=== PATIENT | male | born 1985 | race Caucasian/White ===

== ENCOUNTER 2016-05-02 20:18 | Emergency (ER) | payer SELFPAY ==
[~2016-05-02] VITALS: Ht 188 cm; Wt 89.0 kg
[~2016-05-02 20:18] MED LIST: Z.0.NO CURRENT MEDS
[2016-05-02 20:20] VITALS: BP 161/77; PULSE 94; RESP 16; TEMP 97.8; O2SAT 98
--- NOTE | 2016-05-02 22:03 | PD ---
HPI Chief Complaint: Pain: Acute or Chronic Time Seen by Provider: 22:00 Travel History International Travel<30 days: No Contact w/Intl Traveler<30days: No Traveled to known affect area: No History of Present Illness HPI Patient comes in complaining of right-sided neck pain radiating down his right upper extremity ongoing for 3 or 4 days. Patient states pain began while he was working out at the gym doing flat bench presses. Patient denies any direct trauma, fevers, drug use, numbness or tingling, weakness, loss change in bowel or bladder, or headaches. Pain is worse with certain movement of his neck. Pain is burning like in nature. Patient states taking a hot shower relieves pain. Patient taking ibuprofen with minimal relief. PFSH Past Medical History Autoimmune Disease: No Blood Disorders: No Cancer: No Cardiovascular Problems: No Chemotherapy: No Endocrine: No Genitourinary: No Headaches: No Immune Disorder: No Musculoskeletal: No Neurologic: No (HAD A CONCUSSION 04-23-06) Psychiatric: No Respiratory: No Migraines: No Seizures: No Past Surgical History AICD: No Arteriovenous Shunt: No Insulin Pump: No Joint Replacement: No Pacemaker: No Social History Alcohol Use: Yes (SOCIALLY) Tobacco Use: No Substance Use: No Allergies-Medications (Allergen,Severity, Reaction): Coded Allergies: No Known Allergies (Verified , 05/02/16) Reported Meds & Prescriptions Reported Meds & Active Scripts Active Prednisone (21) 10 mg tab Dose Pack (Prednisone) 10 Mg Pack 10 Mg PO DIRECTED Flexeril (Cyclobenzaprine HCl) 10 Mg Tab 10 Mg PO Q8HR PRN Reported No Current Meds (Miscellaneous Medication) [facility] [place] Review of Systems Except as stated in HPI: all other systems reviewed are Neg Physical Exam Narrative GENERAL: Well-developed, well nourished, in no acute distress, and non-ill appearing. SKIN: Warm and dry. HEAD: Atraumatic. Normocephalic. EYES: Pupils equal and round. EOMI. No scleral icterus. No injection or drainage. ENT: No nasal bleeding or discharge. Mucous membranes pink and moist. NECK: Trachea midline. No JVD. Supple. No nuclear rigidity. No tenderness or crepitus or midline cervical spine or paravertebral spinal muscles. CARDIOVASCULAR: Radial pulses 2+ intact bilaterally. Capillary refill less than 2 seconds. RESPIRATORY: No accessory muscle use. No respiratory distress. MUSCULOSKELETAL: No obvious deformities. No clubbing. No cyanosis. No edema. Full range of motion. Shoulder:FROM equal BL with passive flexion, extension, Abduction, Adduction, internal/external rotation, and pronation/supination. Sensation equal BL deltoid muscles. Pulses equal BL distal to injury. Capillary refill less than 2 seconds distal to injury and equal BL. FROM distal to injury and equal BL. Strength distal to injury equal BL. NV intact distal to injury equal BL. Flexion and extension of thumb equal BL. Equal strength and movement with abduction/adductions of BL fingers. Brand Development Manager strength equal BL. NEUROLOGICAL: Awake and alert. No obvious cranial nerve deficits. Motor grossly within normal limits. Normal speech. PSYCHIATRIC: Appropriate mood and affect; insight and judgment normal. Data Data Last Documented VS Vital Signs Date Time Temp Pulse Resp B/P Pulse Ox O2 Delivery O2 Flow Rate FiO2 05/02/16 20:20 97.8 94 16 161/77 98 Room Air Orders Prednisone (Deltasone) (05/02/16 22:15) Cyclobenzaprine (Flexeril) (05/02/16 22:15) MDM Medical Decision Making Medical Screen Exam Complete: Yes Emergency Medical Condition: Yes Differential Diagnosis Fracture, strain, contusion, radiculopathy, other Narrative Course The patient presented complaining of neck pain with radiation of pain down the arm. There was no history of recent fall or trauma. There was no evidence to support atypical cardiac/angina as an etiology. There is also no evidence to suggest vascular pathology such as TAA or carotid dissection. No fevers or other evidence to suspect infectious processes, abscess, osteomyelitis etc. The patients neurological exam is normal with normal motor and sensory. There is no motor deficits reported or found, and no bowel or bladder incontinence or retention. I suspect the pain is mechanical in nature with dermatomal distribution/ radiculopathy. Clinical suspicion, plan of care and management was discussed with the patient. The patient was instructed to follow up with their health care provider. The patient was also instructed to return if the pain worsened, changed, or developed weakness or bowel or bladder trouble. The patient agreed with plan. Patient in no obvious distress upon re-evaluation. Patient was asked if they wanted to speak to my attending, which the patient did not wish to do at this time. Any questions/concerns in reference to patient diagnosis/condition discussed and clarified prior to patient's discharge. Reinforced sheer importance of close follow up with patient's primary physician or primary care clinic. Instructed patient to return to ED immediately, if symptoms return/ worsen. Pt showed understanding of above instructions. Further instructions and recommendations were detailed in discharge paperwork. Pt ambulated without difficulty out of ED at discharge. Diagnosis Primary Impression: Cervical radiculopathy Patient Instructions: Cervical Radiculopathy (ED), General Instructions Additional Instructions: Follow-up with your primary care physician and/or orthopedics this week for reevaluation. Take all medication as prescribed. Return to the emergency department if symptoms get worse. Med/Other Pt SpecificInfo: Prescription(s) given Scripts Prednisone (21) 10 mg tab Dose Pack 10 Mg Pack10 Mg PO DIRECTED #1 DSPK Ref 0 Prov:Herebrt Carlisle MD 05/02/16 Cyclobenzaprine (Flexeril)10 Mg Tab10 Mg PO Q8HR PRN (MUSCLE PAIN) #15 TAB Ref 0 Prov:Herbert Carlisle MD 05/02/16 Disposition: 01 DISCHARGE HOME Condition: Stable Shay De La Cruz May 02, 2016 22:03
[2016-05-02] MEDS ORDERED: CYCL1TAB29 PO (22:04)
[2016-05-02] MEDS ORDERED: PRED10PA PO (22:04)
[2016-05-02] MEDS ORDERED: predniSONE 20 MG TAB PO ONE (22:15)
[2016-05-02] MEDS ORDERED: CYCLOBENZAPRINE HCL 10 MG TAB PO ONE (22:15)
== END 2016-05-02 22:38 | disposition home or self-care (01) ==
LOC: NEPB 20:18
DX: M54.12 Radiculopathy, cervical region (principal)
CPT/HCPCS: 99283; J7512